=== PATIENT | female | born 1970 | race Caucasian/White ===

== ENCOUNTER → 2024-06-23 10:31 | Outpatient (REF) | payer BC, SELFPAY | LOC: HWWDC 10:31 | PROVIDERS: ATTENDING PHYSICIAN Physician Assistant Medical; FAMILY PHYSICIAN Family Medicine | DX: Z12.31 Encounter for screening mammogram for malignant neoplasm of breast (principal) | CPT/HCPCS: 77063; 77067 ==

== ENCOUNTER 2025-03-01 08:05 | Emergency (ER) | payer BC, SELFPAY ==
[2025-03-01 08:06] VITALS: BP 174/94
--- NOTE | 2025-03-01 09:06 | ED.GENMED ---
History of Present Illness
General
Chief Complaint: Fainting/Passed Out
Source: patient
Exam Limitations: none
Time Seen by Provider: 03/01/25 08:53
History of Present Illness
History of Present Illness:
55yoF with a history of insulin-dependent diabetes, hypertension, hyperlipidemia presenting with her for evaluation after multiple syncopal episodes. Patient was at her friend's house for a girls night yesterday. She drank 4 hard seltzers
throughout the night. Patient was told by her friends that she passed out while standing and struck her head. She was then sitting on the couch and passed out again. Her friends took her home and states that she was wobbly when she walked
into the home. She was on the toilet this morning and passed out a third time. This was preceded by a throbbing pain in her head. She currently reports headache and neck pain. She denies any vomiting, chest pain, palpitations, shortness of
breath.
Past History
Past History
ED Past Medical History: HTN, Hypercholesterolemia, IDDM and Other (Cataract surg. Diverticulitis)
ED Past Surgical History: None, and Other (Tubel)
Social History
Tobacco: Former smoker
Alcohol: Other (Moderate)
Drug: None
Personal:
Living: with family
Phy Exam
General Physical Exam
General Presentation: well appearing and no apparent distress
General age: appears stated age
General Skin: warm and dry
General Habitus: normal
General Mental: alert
ENT Exam
ENT Exam: TM's normal (No hemotympanum) and other (R periorbital ecchymosis)
Eye Exam
Eye Exam: PERRL and conjunctiva normal
Cardiovascular Exam
Cardiovascular Exam: regular rate/rhythm and no murmur
Pulmonary Exam
Pulmonary Exam: lungs clear, no respiratory distress, no rales, no crackles, no rhonchi and no wheezing
Neurological Exam
Neurological Exam: alert
Sary Coma Scale
Eye Opening: Spontaneous
Verbal Response: Oriented
Motor Response: Obeys Commands
GCS Total Score: 15
Skin Exam
Skin Exam: normal color and warm/dry
Psychiatric Exam
Psychiatric Exam: normal mood/affect
Course
Orders/Labs/Results
Orders:
Orders
03/01/25 08:10
ECG [Electrocardiogram (*1)] Urgent
Reason for Study: Syncope
EKG- Treatment ONCE
03/01/25 09:05
CT Cervical Spine W/o Iv Contr Urgent
Comment:
Reason For Exam: neck pain, fall
CT Head W/o Iv Contrast Urgent
Comment:
Reason For Exam: head injury
Cardiac Monitoring- Treatment ONCE
03/01/25 09:10
Complete Blood Count/With Diff Urgent
Comprehensive Metabolic Panel Urgent
Magnesium Urgent
Troponin I Urgent
03/01/25 10:41
Magnesium Sulfate 2 Gram/50 ml [Magnesium Sulfate] 2 gram in 50 ml IV NOW
Abnormal Lab Results
03/01/25
09:10
MCH 33.6 H pg
(27.0-31.0)
Absolute Lymphs (auto) 1.0 L 10^3/uL
(1.2-3.4)
Lymphocytes % 20.0 L %
(20.5-51.1)
Chloride 96 L mmol/L
(98-107)
Glucose 118 H mg/dl
(70-99)
Magnesium 1.5 L mg/dl
(1.6-2.3)
AST 80 H U/L
(14-36)
ALT 57 H U/L
(0-35)
03/01/25 09:10
03/01/25 09:10
Vital Signs
Initial and Last Documented VS:
Initial Vital Signs
Temp Pulse Resp BP Pulse Ox
97.9 F 88 18 174/94 100
03/01/25 08:06 03/01/25 08:06 03/01/25 08:06 03/01/25 08:06 03/01/25 08:06
Last Documented Vital Signs
Temp Pulse Resp BP Pulse Ox
97.9 F 91 18 139/80 96
03/01/25 08:06 03/01/25 12:26 03/01/25 12:26 03/01/25 12:23 03/01/25 11:44
MDM/Problems Addressed
Differential Diagnosis Includes:
55yoF here after multiple syncopal episodes since last night. 2 episodes last night and 1 episode this morning while on the toilet. C/o headache and neck pain. There is L periorbital ecchymosis noted on exam. No CP/SOB. She is hypertensive with
otherwise stable vitals. She is awake, alert, with a GCS of 15. Differential diagnosis includes but is not limited to: Alcohol intoxication, vasovagal episode, micturition syncope, cardiogenic syncope, intracranial hemorrhage
Initial ED plan: Check cardiac labs, EKG, CT head, and CT cervical spine.
*EKG
Interpreted by ED Provider?: Yes
EKG Intrepretation Date: 03/01/25
Heart Rate: 89
Rate: normal
Rhythm: sinus
Forbes: normal axis
Interval: other (QTc 484)
QRS Pattern: normal QRS
Ischemia: no ischemia
*Critical Care Note
Total Time (30-74mins, 75-104mins- exclusive of procedures): Not Applicable
Update Note
Update Note:
Labs reveal a magnesium of 1.5 which was replaced. Mild transaminitis present. EKG shows normal sinus rhythm without ischemic changes or ectopy and troponin within normal limits. Head CT and cervical spine negative for traumatic injuries.
Recommended hospitalization given numerous syncopal episodes. Patient is refusing to be admitted at this time and would like to leave AMA. Risks of leaving AMA discussed with patient including recurrent syncope, arrhythmia, permanent disability,
and . Patient expressed understanding to risks and appears to have capacity to make medical decisions. BUNNY paperwork signed. She is planning to go on a 3-week road trip to [place] starting tomorrow. She was able to make an appointment with
cardiology for when she returns. She was also advised to follow-up with her PCP. Strict ED return precautions reviewed.
ED Attending Note
-
Portions of this chart may have been created with voice recognition software.� Occasional wrong word or��sound alike� substitutions may have occurred due to the inherent limitations of voice recognition software.
Discharge Plan
Departure
Patient Disposition: Against Medical Advice
Date of Disposition: 03/01/25
Time of Disposition: 11:28
Discharge Problem:
Syncope
Instructions: Syncope (Fainting) (DC)
Prescriptions:
No Action
triamterene-hydrochlorothiazid 1 EACH capsule
1 ea PO BID
omeprazole 10 MG capsule,delayed release(DR/EC)
10 mg PO DAILY
insulin aspart U-100 [Novolog U-100 Insulin aspart] 100 UNITS/1 ML solution
0 units SC AC
Patient Comments:
10-30 after meals
ranitidine HCl 150 MG/10 ML syrup
150 mg PO DAILY
spironolactone 50 MG tablet
50 mg PO BID
ibuprofen 400 MG tablet
400 mg PO Q6HPRN PRN (Reason: pain)
loratadine 10 MG tablet
10 mg PO DAILY
insulin detemir U-100 [Levemir U-100 Insulin] 100 UNIT/ML solution
50 unit SC BID
ondansetron 4 MG tablet,disintegrating
4 mg PO Q8HPRN PRN (Reason: Nausea/Vomiting) Qty: 15 0RF
Referrals:
Olu Scott MD [Family Provider] -
David Barroso MD [Active] -
Activity Restrictions/Additional Instructions:
Please follow-up with your family doctor and cardiology. Return to the ER immediately with any new or worsening symptoms.
Interventions
Interventions:
*Risk Screen - Suicide Last Done: 03/01/25 08:09
*General Assessment Last Done: 03/01/25 08:09
*Neglect/Abuse Screening Last Done: 03/01/25 09:07
*ED- Fall Risk Assessment Last Done: 03/01/25 09:07
*ED COVID-19 Vaccine History Last Done: 03/01/25 09:07
*Nursing Disposition Last Done: 03/01/25 12:30
ED- Cardiac Assessment Last Done: 03/01/25 09:07
ED- Neurological Assessment Last Done: 03/01/25 09:07
Discharge Date and Time
Discharge Date/Time: 03/01/25 12:30
Print Language: CYMRAES
[2025-03-01 09:07] VITALS: BMI 28.0
[2025-03-01 09:09] VITALS: BP 148/90
[2025-03-01 09:52] VITALS: BP 140/92
[2025-03-01 10:00] VITALS: BP 141/91
[2025-03-01 10:02] LABS: % Basophils 0.6 % (0-2); % Eosinophils 1.4 % (0-6); % Immature Granulocytes 0.4 % (0-0.5); % Monocytes 8.6 % (1.7-9.3); Absolute Eosinophils 0.1 10^3/uL (0-0.7); Absolute Monocytes 0.4 10^3/uL (0.1-0.6); Absolute Neutrophils 3.4 10^3/uL (1.4-6.5); Hematocrit 43.1 % (37.0-47.0); Hemoglobin 15.5 g/dL (12.0-16.0); Mean Corpuscular Hgb 33.6 pg (27.0-31.0); Mean Corpuscular Volume 93.5 fL (81.0-99.0); Mean Platelet Volume 9.2 fL (7.4-10.4); Nucleated Red Blood Cells % 0 %; Platelet Count 236 10^3/uL (130-400); Red Blood Cell Count 4.61 10^6/uL (4.20-5.40); Red Cell Dist. Width 13.1 % (11.5-14.5)
[2025-03-01 10:12] LABS: ALT (SGPT) 57 U/L (0-35); AST (SGOT) 80 U/L (14-36); Albumin 4.5 g/dl (3.5-5.0); Alkaline Phosphatase 76 U/L (38-126); Blood Urea Nitrogen 7 mg/dl (7-17); Calcium 9.8 mg/dl (8.4-10.2); Carbon Dioxide 28 mmol/L (22-30); Chloride 96 mmol/L (98-107); Estimated Creatinine Clearance 92 ml/min; Glucose 118 mg/dl (70-99); Magnesium 1.5 mg/dl (1.6-2.3); Potassium 3.5 mmol/L (3.5-5.1); Sodium 138 mmol/L (135-145); Total Bilirubin 0.7 mg/dl (0.2-1.3); Total Protein 7.2 g/dl (6.3-8.2); eGFR > 60.00
[2025-03-01 10:23] LABS: Troponin I < 0.012 ng/ml
[2025-03-01] MEDS: MAGNESIUM SULFATE 50 IV (10:49)
[2025-03-01 12:23] VITALS: BP 139/80
== END 2025-03-01 12:30 | disposition left against medical advice (07) ==
LOC: EMR 08:05
PROVIDERS: Physician Assistant; EMERGENCY PHYSICIAN Emergency Medicine; FAMILY PHYSICIAN Family Medicine
DX: R55 Syncope and collapse (principal); R51.9 Headache, unspecified; M54.2 Cervicalgia; S00.12XA Contusion of left eyelid and periocular area, initial encounter; W18.30XA Fall on same level, unspecified, initial encounter; Y92.89 Other specified places as the place of occurrence of the external cause; Z53.29 Procedure and treatment not carried out because of patient's decision for other reasons; F10.90 Alcohol use, unspecified, uncomplicated; I10 Essential (primary) hypertension; E11.36 Type 2 diabetes mellitus with diabetic cataract; E78.00 Pure hypercholesterolemia, unspecified; K57.92 Diverticulitis of intestine, part unspecified, without perforation or abscess without bleeding; Z87.891 Personal history of nicotine dependence; Z79.4 Long term (current) use of insulin; Z88.1 Allergy status to other antibiotic agents; Z88.8 Allergy status to other drugs, medicaments and biological substances
CPT/HCPCS: 99284; 96365; 70450; 72125; 80053; 83735; 84484; 85025; 93005